=== PATIENT | female | born 1930 | race Caucasian/White ===

== ENCOUNTER 2017-01-12 16:52 | Emergency (ER) | payer OTHER ==
[2017-01-12 16:59] VITALS: BP 132/78; TEMP 99.6; BMI 31.4
[2017-01-12] MEDS ORDERED: TENIVAC IM ONE (17:12)
--- NOTE | 2017-01-12 17:15 | ED.PDOC ---
General ED Provider: Dr. JACKELINE ALVAREZ Chief Complaint: Foot Pain/Injury Stated Complaint: foot injury left Time Seen by Physician: 17:00 (stepped on a nail) Mode of Arrival: Walk-In Information Source: Patient Exam Limitations: No limitations Primary Care Provider: RUBIN MEDRANO Nursing and Triage Documentation Reviewed and Agree: Yes Trauma/Injury Complaint Exam - Trauma Complaint/Exam Location of Pain or Injury: Reports: Other (left foot) Mechanism of Injury: Reports: Other (puncture wound by a nail) Onset/Duration: 1 hr Symptoms Are: Still present Initial Severity: Mild Current Severity: Mild Character: Reports: Aching Aggravating: Reports: None Alleviating: Reports: None Associated Signs and Symptoms: Denies: LOC, Confusion, Memory loss, Lethargy, Vomiting, Bleeding, Bruising, Swelling, Extremity disuse, Painful respiration, Hoarseness, Dysphagia, Hemoptysis, Significant blood loss Review of Systems - Review Of Systems Constitutional: Reports: No symptoms Eyes: Reports: No symptoms Ears, Nose, Mouth, Throat: Reports: No symptoms Respiratory: Reports: No symptoms Cardiac: Reports: No symptoms GI: Reports: No symptoms : Reports: No symptoms Musculoskeletal: Reports: No symptoms Skin: Reports: Other (puncture wound left foot) Neurological: Reports: No symptoms Endocrine: Reports: No symptoms Hematologic/Lymphatic: Reports: No symptoms All Other Systems: Reviewed and Negative Past Medical History - Past Medical History Previously Healthy: No Endocrine: Reports: None Cardiovascular: Reports: None, Hypertension Respiratory: Reports: None Hematological: Reports: None Gastrointestinal: Reports: GERD Genitourinary: Reports: None Neuro/Psych: Reports: None Musculoskeletal: Reports: Other Cancer: Reports: None Last Menstrual Period: hysterectomy - Surgical History General Surgical History: Reports: Unknown - Family History Family History: Reports: Unknown - Social History Smoking Status: Former smoker Hx Substance Use: No Alcohol Screening: Occasionally Physical Exam - Physical Exam Appearance: Well-appearing, No pain distress, Well-nourished Eyes: DINORAH, EOMI, Conjunctiva clear ENT: Ears normal, Nose normal, Oropharynx normal Respiratory: Airway patent, Breath sounds clear, Breath sounds equal, Respirations nonlabored Cardiovascular: RRR, Pulses normal, No rub, No murmur GI/: Soft, Nontender, No masses, Bowel sounds normal, No Organomegaly Musculoskeletal: Normal strength, ROM intact, No edema, No calf tenderness Skin: Warm, Dry (2 mm puncture foot left foot) Neurological: Sensation intact, Motor intact, Reflexes intact, Cranial nerves intact, Alert, Oriented Psychiatric: Affect appropriate, Mood appropriate Critical Care Note - Critical Care Note Total Time (mins): 0 Course - Course Orders, Labs, Meds: Orders Category Date Time Status Tetanus and Diphtheria Tox/Pf [Tenivac] MEDS 01/12/17 17:12 Once 0.5 ml IM .ONCE ONE Vital Signs: Temp Pulse Resp BP Pulse Ox 01/12/17 16:53 99.6 F 60 20 132/78 96 Departure - Departure Time of Disposition: 17:14 Disposition: HOME SELF-CARE Discharge Problem: Injury of foot Puncture wound of foot, left Qualifiers: Encounter type: initial encounter Qualifier Code: (S91.332A) Puncture wound without foreign body, left foot, initial encounter Instructions: Puncture Wound (ED) Condition: Good Pt referred to PMD for follow-up: No Additional Instructions: Please call your Family Physician as soon as possible to schedule a follow-up appointment. Prescriptions: Amoxicillin 500 mg PO Q8HR #21 tablet Allergies/Adverse Reactions: Allergies levofloxacin [From Levaquin] Adverse Reaction (Verified 01/12/17 17:02) Home Medications: Ambulatory Orders Felodipine [Felodipine ER] 5 mg PO DAILY 05/07/15 Hydrochlorothiazide 12.5 mg PO DAILY 05/07/15 Hydrocodone Bit/Acetaminophen [Bude 7.5-325] 1 tab PO 2-3XD PRN 05/07/15 Omeprazole [Prilosec] 20 mg PO QDAC 05/07/15 Potassium Chloride 10 meq PO BID 05/07/15 Amoxicillin 500 mg PO Q8HR #21 tablet 01/12/17
== END 2017-01-12 17:27 | disposition home or self-care (01) ==
LOC: ED 16:52
DX: S91.332A Puncture wound without foreign body, left foot, initial encounter (principal); W45.0XXA Nail entering through skin, initial encounter
CPT/HCPCS: 90471; 99282

== ENCOUNTER 2018-03-06 14:34 | Outpatient (CLI) ==
--- NOTE | 2018-03-07 09:47 | US ---
PRELIMINARY EXAM: Digital bilateral diagnostic mammogram and right breast ultrasound HISTORY: Right breast mass COMPARISON: Screening mammogram 03/18/2015 FINDINGS: Bilateral views of the breasts were performed digitally and demonstrate scattered fibrogla ndular breast density. There is been interval development of a central right retroareolar mass with n ipple retraction and central calcifications. Benign bilateral vascular calcifications are present. There is no suspicious all mass on the left. Right breast ultrasound at 3 o'clock in the retroareolar space demonstrates a irregular mass, 2-6 cm from the nipple measuring 2.7 x 1.4 x 2.9 cm with a irregular margins. There is an additional adjace nt irregular nodule right breast at 12 o'clock 4-5 cm from the nipple measuring 0.7 x 0.4 x 0.7 cm. IMPRESSION: Retroareolar right breast mass highly suspicious for cancer with an adjacent smaller conor picious mass seen on ultrasound. RECOMMENDATION: Ultrasound guided soft tissue biopsy of the right breast mass BIRADS category 4: Suspicious abnormality and biopsy should be considered.
== END 2018-03-06 14:35 | disposition home or self-care (01) ==
LOC: RAD 14:34
PROVIDERS: ATTEND Family Medicine
DX: Z12.31 Encounter for screening mammogram for malignant neoplasm of breast (principal); N64.4 Mastodynia